=== PATIENT | female | born 1965 | race Caucasian/White ===

== ENCOUNTER 2024-01-28 06:51 | Day surgery (SDC) | payer BC, MEDICARE ==
[2024-01-28] VITALS (9 sets, daily range): BP systolic 97–125; BP diastolic 57–74; PULSE 60–107; RESP 11–16; TEMP 97.5; O2SAT 93–97
[~2024-01-28] VITALS: Ht 172.7 cm; Wt 84.9 kg
[2024-01-28] MEDS ORDERED: ceFAZolin 2gm in dextrose, iso 50 ML IV ONE (07:30)
[2024-01-28] MEDS ORDERED: VANCOMYCIN 1GM 200ML H20 (PEG) 200 ML IV ONE (07:30)
[2024-01-28] MEDS: VANCOMYCIN/H2O 1.5g/300mL PB 300 ML IV ONE (08:02)
[2024-01-28] MEDS ORDERED: OXYC5CAP22 PO (08:15)
[2024-01-28] MEDS ORDERED: ROSU40TA89 PO (08:15)
[2024-01-28] MEDS ORDERED: SPIR25TA5 PO (08:15)
[2024-01-28] MEDS ORDERED: SERT-433 PO (08:15)
[2024-01-28] MEDS ORDERED: DIPH-423 PO (08:15)
[2024-01-28] MEDS ORDERED: FEXO-353 PO (08:15)
[2024-01-28] MEDS ORDERED: CARV25TA3 PO (08:15)
[2024-01-28] MEDS ORDERED: LANTUS SQ (08:15)
[2024-01-28] MEDS ORDERED: METF-900 PO (08:15)
[2024-01-28] MEDS ORDERED: FURO40TA4 PO (08:15)
[2024-01-28] MEDS ORDERED: DIAZ2TAB4 PO (08:15)
[2024-01-28] MEDS ORDERED: LISI5TAB22 PO (08:15)
[2024-01-28] MEDS ORDERED: POTA8CAP20 PO (08:15)
[2024-01-28] MEDS ORDERED: PANT40TA54 PO (08:15)
[2024-01-28 08:18] LABS: BASOPHILS % (AUTO) 0.3 % (0-1); EOSINOPHILS # (AUTO) 0.3 X10'3 (0-0.9); EOSINOPHILS % (AUTO) 3.6 % (0-6); HEMATOCRIT 42.5 % (35.0-45.0); HEMOGLOBIN 14.3 g/dl (12.0-16.0); LYMPHOCYTES % (AUTO) 28.3 % (21-51); MEAN CORPUSCULAR HEMOGLOBIN 28.7 PG (27.0-31.0); MEAN CORPUSCULAR HGB CONC 33.6 g/dL (33.0-36.5); MEAN CORPUSCULAR VOLUME 85.7 FL (78-98); MEAN PLATELET VOLUME 9.5 FL (7.4-10.4); MONOCYTES # (AUTO) 0.5 X10'3 (0-0.9); MONOCYTES % (AUTO) 7.3 % (2-12); NEUTROPHILS # (AUTO) 4.3 X10'3 (1.8-7.7); NEUTROPHILS % (AUTO) 60.5 % (42-75); PLATELET COUNT 192 X10'3 (140-440); RED BLOOD COUNT 4.96 X10'6 (4.20-5.60); RED CELL DISTRIBUTION WIDTH 13.9 % (11.5-14.5); WHITE BLOOD COUNT 7.1 X10'3 (4.5-11.0)
[2024-01-28 08:34] LABS: ALBUMIN 3.5 G/DL (3.4-5.0); ANION GAP 11 (8-16); BLOOD UREA NITROGEN 14 MG/DL (7-18); BUN/CREATININE RATIO 15.7 (10.0-20.0); CHLORIDE 106 MMOL/L (99-107); CREATININE 0.89 MG/DL (0.40-0.90); GLUCOSE 116 MG/DL (70-104); MAGNESIUM 2.2 MG/DL (1.5-2.4); POTASSIUM 3.8 MMOL/L (3.5-5.1); SODIUM 142 MMOL/L (135-145); eCRCL 70 ML/MIN; eGFR 65 ML/MIN
[2024-01-28 08:35] LABS: PROTHROMBIN TIME 10.1 SECONDS (9.0-12.0)
[2024-01-28] MEDS ORDERED: midazolam 1 mg/ML 2ml injection ONE ×2 (08:38→09:46)
[2024-01-28] MEDS ORDERED: LIDOcaine 1% W/epiNEPHrine 1:100,000 20ml vial ONE (08:38)
[2024-01-28] MEDS ORDERED: vancomycin 1,000mg inj ONE (08:38)
[2024-01-28] MEDS ORDERED: fentaNYL/PF 50MCG/1 ML 2ML syringe ONE (08:38)
[2024-01-28] MEDS ORDERED: HYDROmorphone 1 mg/ml syringe ONE (10:03)
== END 2024-01-28 14:00 | disposition home or self-care (01) ==
LOC: SSTAY O 06:51
PROVIDERS: ATTEND Internal Medicine Cardiovascular Disease
DX: Z45.02 Encounter for adjustment and management of automatic implantable cardiac defibrillator (principal); I42.0 Dilated cardiomyopathy; I44.7 Left bundle-branch block, unspecified; E11.9 Type 2 diabetes mellitus without complications; E78.5 Hyperlipidemia, unspecified; Z79.82 Long term (current) use of aspirin; Z79.84 Long term (current) use of oral hypoglycemic drugs; Z79.891 Long term (current) use of opiate analgesic; Z79.899 Other long term (current) drug therapy; Z90.710 Acquired absence of both cervix and uterus; Z98.890 Other specified postprocedural states; Z91.041 Radiographic dye allergy status; Z88.8 Allergy status to other drugs, medicaments and biological substances
CPT/HCPCS: 33264; 36415; 80048; 82948; 83735; 85025; 85610; 93005; 99152; 99153; C1882; J1171; J2250; J3010; J3370; J3372; J3490; J7030; A6449